=== PATIENT | male | born 1980 | race Caucasian/White ===

== ENCOUNTER 2018-10-25 10:15 | Emergency (ER) | payer OTHER ==
[2018-10-25 10:21] VITALS: BP 152/83; RESP 16; TEMP 98.6; O2SAT 99
[2018-10-25 10:23] VITALS: PULSE 85
--- NOTE | 2018-10-25 10:53 | RAD ---
PROCEDURE: Right Hand Radiographs. HISTORY: r/o fx COMPARISON: None available. FINDINGS: BONES: Comminuted mildly displaced fracture deformity of the 5th metacarpal. JOINTS: No dislocation. SOFT TISSUES: Soft tissue swelling. No evidence of radiopaque foreign body. OTHER FINDINGS: None. IMPRESSION: Comminuted mildly displaced fracture deformity of the 5th metacarpal. Associated soft tissue swelling.
--- NOTE | 2018-10-25 11:00 | C.PDOC ---
History Of Present Illness 38 y/o male pt presents to the ER c/o right hand injury this morning. Pt reports he went out to take out the garbage when he trip, fell and landed on his right hand and b/l knees. The patient reports that he is right hand dominant. Pt denies knee pain, pain at the wrist, no LOC, or head and neck injury. - HPI Time Seen by Provider: 10/25/18 10:39 Chief Complaint (Nursing): Trauma History Per: Patient History/Exam Limitations: no limitations Onset/Duration Of Symptoms: Hrs Location Of Injury: Right: Hand Severity: Moderate Past Medical History Reviewed: Historical Data, Nursing Documentation, Vital Signs Vital Signs: Last Vital Signs Temp 98.6 F 10/25/18 10:21 Pulse 85 10/25/18 10:21 Resp 16 10/25/18 10:21 BP 152/83 H 10/25/18 10:21 Pulse Ox 99 10/25/18 10:21 Family History: States: No Known Family Hx - Social History Hx Alcohol Use: No Hx Substance Use: No - Immunization History Hx Tetanus Toxoid Vaccination: No Hx Influenza Vaccination: No Hx Pneumococcal Vaccination: No Review Of Systems Except As Marked, All Systems Reviewed And Found Negative. Constitutional: Negative for: Other (head or neck injury ) Musculoskeletal: Positive for: Hand Pain (right ). Negative for: Other (knee pain; wrist pain) Neurological: Negative for: Other (LOC) Physical Exam - Physical Exam Appears: Non-toxic, No Acute Distress Skin: Warm, Dry Head: Normacephalic Extremity: Tenderness (right 4th and 5th metacarpal ), No Deformity, Swelling (righ 4th and 5th metacarpal ) Pulses: Right Radial: Normal Neurological/Psych: Oriented x3, Normal Speech, Normal Cognition, Normal Motor, Normal Sensation ED Course And Treatment O2 Sat by Pulse Oximetry: 99 (RA) Pulse Ox Interpretation: Normal - Other Rad R hand X-Ray: Read By Radiologist Interpretation: Accession No. : [id number]. Patient Name / ID : NICKY GRAHAM / [id number]. Exam Date : 10/25/2018 10:39:46 ( Approved ). Study Comment : Sex / Age : M / 38Y. Creator : Ai Maciel MD. Dictator : Ai Maciel MD. Shoe Cementer : Data Control Assistant : Ai Maciel MD. Approver2 : Report Date : 10/25/2018 10:49:52. My Comment : . PROCEDURE: Right Hand Radiographs. HISTORY: r/o fx. COMPARISON: None available. FINDINGS: BONES: Comminuted mildly displaced fracture deformity of the 5th metacarpal. JOINTS: No dislocation. SOFT TISSUES: Soft tissue swelling. No evidence of radiopaque foreign body. OTHER FINDINGS: None. IMPRESSION: Comminuted mildly displaced fracture deformity of the 5th metacarpal. Associated soft tissue swelling. Medical Decision Making Medical Decision Making: Plans: -- Tylenol -- Right hand XR Disposition - Disposition Referrals: Vasquez Erickson MD [Staff Provider] - Sachin Sen MD [Staff Provider] - [facility] [Outside] Disposition: HOME/ ROUTINE Disposition Time: 11:42 Condition: STABLE Additional Instructions: Follow up with the Orthopedist within 1 week. Return if worsened. Prescriptions: Acetaminophen [Tylenol] 325 mg PO Q6 PRN #30 tab PRN Reason: Pain, Mild (1-3) Instructions: Hand Fracture (DC) Forms: [facility] (Welsh), Work Excuse - Clinical Impression Clinical Impression: Hand fracture - PA / GRADER MEAT / Resident Statement / has reviewed & agrees with the documentation as recorded. - Scribe Statement The provider has reviewed the documentation as recorded by the Meghan Alberto Do All medical record entries made by the Scribe were at my direction and personally dictated by me. I have reviewed the chart and agree that the record accurately reflects my personal performance of the history, physical exam, medical decision making, and the department course for this patient. I have also personally directed, reviewed, and agree with the discharge instructions and disposition.
== END 2018-10-25 11:58 | disposition home or self-care (01) ==
LOC: C.ER 10:15
DX: S62.306A Unspecified fracture of fifth metacarpal bone, right hand, initial encounter for closed fracture (principal); W01.0XXA Fall on same level from slipping, tripping and stumbling without subsequent striking against object, initial encounter; Y92.89 Other specified places as the place of occurrence of the external cause